=== PATIENT | female | born 1935 | race Caucasian/White ===

== ENCOUNTER → 2022-04-24 | Outpatient (CLI) | payer MEDICARE, BC ==
[~2022-04-24] MED LIST: ANTIHYPERTENSIVE
== END ==
LOC: MHCPAIN 10:37
DX: M47.896 Other spondylosis, lumbar region (principal); M54.16 Radiculopathy, lumbar region; M53.3 Sacrococcygeal disorders, not elsewhere classified; M48.062 Spinal stenosis, lumbar region with neurogenic claudication
CPT/HCPCS: G0463

== ENCOUNTER → 2022-05-03 | Outpatient (CLI) | payer MEDICARE, BC | LOC: MHCPAIN 13:04 | DX: M47.817 Spondylosis without myelopathy or radiculopathy, lumbosacral region (principal); M53.3 Sacrococcygeal disorders, not elsewhere classified; M54.16 Radiculopathy, lumbar region | CPT/HCPCS: J1100; Q9967 ==

== ENCOUNTER → 2022-05-21 | Outpatient (CLI) | payer MEDICARE, BC | LOC: MHCPAIN 13:13 | DX: M48.062 Spinal stenosis, lumbar region with neurogenic claudication (principal); M47.896 Other spondylosis, lumbar region; M54.16 Radiculopathy, lumbar region; I10 Essential (primary) hypertension | CPT/HCPCS: G0463 ==